=== PATIENT | male | born 1965 | race Caucasian/White ===

== ENCOUNTER 2019-09-27 00:08 | Day surgery (SDC) | payer BC, OTHER, SELFPAY ==
[2019-09-19 14:04] VITALS: BMI 33.6
[2019-09-27 07:00] VITALS: BP 141/89; PULSE 86; RESP 20; TEMP 36.1; O2SAT 99
--- NOTE | 2019-09-27 07:15 | P.PNAN_ITS ---
Anes - Initial Pre Proc Eval Procedure: Operation Date: 09/27/19 08:00 Proposed Procedures p Screening Colonoscopy - Nikunj Chance MD Date/Time: 09/27/19 07:15 Surgeon: Nikunj Chance MD Pre Op Diagnosis: Neoplasm Screening Patient Data Age: 53 Gender: M Height: 6 ft 2 in Weight: 144.7 kg Last Vital Signs Temp 96.9 F L 09/27/19 07:00 Pulse 86 09/27/19 07:00 Resp 20 09/27/19 07:00 BP 141/89 H 09/27/19 07:00 Pulse Ox 99 09/27/19 07:00 Allergies Allergy/AdvReac Type Severity Reaction Status Date / Time No Known Allergies Allergy Verified 09/27/19 06:57 Home Medications Medication Instructions Recorded Confirmed Type famotidine 40 mg PO DAILY 09/19/19 09/27/19 History levothyroxine [Synthroid] 88 mcg PO DAILY 09/19/19 09/27/19 History Patient hx anesthesia problems: none Family hx anesthesia problems: none [facility] Past Medical History Medical History (Updated 09/27/19 @ 07:16 by Maverick Mcdonald MD) Hypothyroid Morbid obesity Anes - Eval Final PreProcedure Day of Procedure 09/27/19 07:15 Patient weight: morbidly obese Heart: regular rate and rhythm Lungs: clear to auscultation Airway: Mallampati scale class III Neurological: alert and oriented Last oral intake: >/= 8 hours ASA classification: III Emergent: no Anesthetic plan: proceed Anesthesia type and monitoring: general GIVS and standard monitoring Informed Consent: The patient's anesthetic plan and its attendant risks and benefits were discussed with the patient/family/POA. Questions were solicited and answers provided to the satisfaction of the patient/family/POA.
[2019-09-27] MEDS: LACTATED RINGERS 1,000 ML 150 ML IV CONT (07:20)
--- NOTE | 2019-09-27 07:27 | P.HP_ITS ---
History of Present Illness History of Present Illness Consent: Risks, benefits, and alternatives have been discussed and questions answered. Patient agrees to proceed with procedure. Chief complaint: Neoplasm Screening Narrative: Louis Hernandez is a 53 year old male with family history of colon cancer [facility] Past Medical History Medical History Hypothyroid Morbid obesity Meds Home Medications and Allergies Home Medications Medication Instructions Recorded Confirmed Type famotidine 40 mg PO DAILY 09/19/19 09/27/19 History levothyroxine [Synthroid] 88 mcg PO DAILY 09/19/19 09/27/19 History Allergies Allergy/AdvReac Type Severity Reaction Status Date / Time No Known Allergies Allergy Verified 09/27/19 06:57 Vital Signs Vital Signs - 24 hr 09/27/19 07:00 Temperature 36.1 C L Pulse Rate 86 Respiratory Rate 20 Blood Pressure 141/89 H Pulse Oximetry 99 Exam Resp: Auscultation: clear to auscultation bilaterally Cardio: Rate: regular rate Rhythm: regular rhythm GI: GI Palp: Yes Soft to palpation and No Tenderness to palpation present (GI) Assessment and Plan Assessment and plan (1) Colon cancer screening: Code(s): Z12.11 - Encounter for screening for malignant neoplasm of colon Status: Acute Assessment and Plan: Colonoscopy with possible biopsy or polypectomy or cautery or injection of substances. (2) Family history of colon cancer: Code(s): Z80.0 - Family history of malignant neoplasm of digestive organs Status: Acute
[2019-09-27 08:15] VITALS: BP 103/52; PULSE 77; RESP 17; O2SAT 97
[2019-09-27 08:25] VITALS: BP 121/77; PULSE 78; RESP 21; O2SAT 98
[2019-09-27 08:35] VITALS: BP 131/65; PULSE 76; RESP 18; O2SAT 98
== END 2019-09-27 08:38 | disposition home or self-care (01) ==
PROVIDERS: Visit Provider Internal Medicine Gastroenterology
PROC: 0DJD8ZZ Inspection of Lower Intestinal Tract, Via Natural or Artificial Opening Endoscopic (ICD-10-PCS; CPT 45378; principal; 2019-09-27 08:00)
DX: Z12.11 Encounter for screening for malignant neoplasm of colon (principal); K64.8 Other hemorrhoids; E03.9 Hypothyroidism, unspecified; E66.01 Morbid (severe) obesity due to excess calories; Z68.41 Body mass index [BMI] 40.0-44.9, adult; Z80.0 Family history of malignant neoplasm of digestive organs
CPT/HCPCS: 45378; J2704; J7120

== ENCOUNTER → 2021-03-26 00:36 | Outpatient (CLI) | payer BC, OTHER, SELFPAY ==
[2021-03-26 23:33] LABS: SARS-CoV-2 RNA PCR Negative
== END ==
PROVIDERS: PCP Nurse Practitioner Family; Visit Provider Otolaryngology
DX: Z01.812 Encounter for preprocedural laboratory examination (principal); Z20.822 Contact with and (suspected) exposure to COVID-19
CPT/HCPCS: C9803; U0003; U0005

== ENCOUNTER 2021-03-29 00:45 | Day surgery (SDC) | payer BC, OTHER, SELFPAY ==
[2021-03-22 15:29] VITALS: BMI 39.1
--- NOTE | 2021-03-26 16:24 | P.PNAN_ITS ---
Anes - Eval Pre Procedure Procedure: Operation Date: 03/29/21 07:45 Proposed Procedures p Septoplasty - Kranthi Aponte MD s Bilateral Turbinate Reduction - Kranthi Aponte MD Date/Time: 03/26/21 16:24 Pre Op Diagnosis: deviated septum, turbinate hypertrophy Patient Data Age: 55 Gender: M Height: 1.88 m Weight: 138.35 kg Allergies Allergy/AdvReac Type Severity Reaction Status Date / Time No Known Allergies Allergy Verified 10/28/20 17:37 Home Medications Medication Instructions Recorded Confirmed Type levothyroxine [Synthroid] 60 mcg PO DAILY 03/22/21 03/22/21 History Patient hx anesthesia problems: none Family hx anesthesia problems: none [facility] Past Medical History Medical History Hypothyroid Morbid obesity Social History Social History Smoking status: Never smoker Alcohol use details: socially Substance use: never Spiritual care concerns: No Exam Day of Procedure 03/26/21 16:24 Patient weight: morbidly obese Heart: regular rate and rhythm Lungs: clear to auscultation Airway: Mallampati scale Neurological: alert and oriented
--- NOTE | 2021-03-26 19:23 | WPDANESEPP ---
Anes - Eval Pre Procedure Procedure: Operation Date: 03/29/21 07:45 Proposed Procedures p Septoplasty - Kranthi Aponte MD s Bilateral Turbinate Reduction - Kranthi Aponte MD Date/Time: 03/26/21 19:23 Pre Op Diagnosis: deviated septum, turbinate hypertrophy Patient Data Age: 55 Gender: M Height: 1.88 m Weight: 138.35 kg Allergies Allergy/AdvReac Type Severity Reaction Status Date / Time No Known Allergies Allergy Verified 10/28/20 17:37 Home Medications Medication Instructions Recorded Confirmed Type levothyroxine [Synthroid] 60 mcg PO DAILY 03/22/21 03/22/21 History Patient hx anesthesia problems: none Family hx anesthesia problems: none [facility] Past Medical History Medical History Hypothyroid Morbid obesity Surgical History Surgical History (Updated 03/26/21 @ 19:24 by Tico Mazariegos DO) History of repair of left rotator cuff History of tonsillectomy Social History Social History Smoking status: Never smoker Alcohol use details: socially Substance use: never Spiritual care concerns: No Exam Day of Procedure 03/26/21 19:23
[2021-03-29] VITALS (9 sets, daily range): BP systolic 90–150; BP diastolic 59–95; PULSE 66–88; RESP 10–18; TEMP 36.1–36.5; O2SAT 92–100
[2021-03-29] MEDS: LACTATED RINGERS 1,000 ML 30 ML IV CONT (06:30)
[2021-03-29] MEDS: ACETAMINOPHEN 500 MG TABLET 1000 MG PO (07:00)
[2021-03-29] MEDS: OXYMETAZOLINE HCL 0.05% NAS 15 ML BTL (*BKC) 1 SPRAY NASAL (07:00)
--- NOTE | 2021-03-29 07:01 | WPDANESEFPP ---
Anes - Eval Final PreProcedure Day of Procedure 03/29/21 07:01 Patient weight: morbidly obese Heart: regular rate and rhythm Lungs: clear to auscultation Airway: Mallampati scale class III and other (big muñiz) Neurological: alert and oriented Last oral intake: >/= 8 hours ASA classification: III Emergent: no Anesthetic plan: proceed Anesthesia type and monitoring: general ETT and standard monitoring Informed Consent: The patient's anesthetic plan and its attendant risks and benefits were discussed with the patient/family/POA. Questions were solicited and answers provided to the satisfaction of the patient/family/POA.
--- NOTE | 2021-03-29 07:23 | P.HP_ITS ---
H&P: HPI History of Present Illness Date/Time: 03/29/21 07:23 Chief Complaint: nasal dyspnea Narrative: deviated septum Review of Systems Review of Systems: All systems reviewed & are unremarkable except as noted in HPI and below [facility] Past Medical History Medical History Hypothyroid Morbid obesity Surgical History Surgical History History of repair of left rotator cuff History of tonsillectomy Social History Social History Smoking status: Never smoker Alcohol use details: socially Substance use: never Living arrangements: with family Spiritual care concerns: No Meds Home Medications and Allergies Home Medications Medication Instructions Recorded Confirmed Type levothyroxine [Synthroid] 60 mcg PO DAILY 03/22/21 03/22/21 History Allergies Allergy/AdvReac Type Severity Reaction Status Date / Time No Known Allergies Allergy Verified 10/28/20 17:37 Exam Narrative: deviated septum. rest of exam wnl Assessment and Plan Assessment and plan (1) Deviated nasal septum: Code(s): J34.2 - Deviated nasal septum Status: Acute Assessment and Plan: Deviatd septum and turbinate hypertrophy, here for septoplasty and turbinoplasty. refer to outpt for full details. r/b/a reviewed.
--- NOTE | 2021-03-29 07:25 | WPDHPUPDATE1 ---
History and Physical Update Update Date/Time: 03/29/21 07:25 History and Physical has been reviewed, including an updated exam of the patient. There are NO changes in the patient's condition. Risks, benefits, and alternatives have been discussed and questions answered. Patient agrees to proceed with procedure.
[2021-03-29] MEDS: ceFAZolin 3 GM/D5W 100 ML 100 ML IVPB (07:54)
[2021-03-29] MEDS: MUPIROCIN 2% OINT 22 GM TUBE 1 APPLIC TOPICAL (08:41)
[2021-03-29] MEDS: LIDO 1%/EPINEPHRINE 1:100,000 20 ML VIAL 4 ML INFILTRATE (08:46)
--- NOTE | 2021-03-29 08:47 | P.OP_ITS ---
Procedure Note - Detailed Date of Procedure 03/29/21 Pre-op Diagnosis deviated septum, turbinate hypertrophy Post-op Diagnosis same Procedure Performed Septoplasty and bilateral inferior turbinoplasty Surgeon Kranthi Aponte MD Anesthesia general Indications nasal dyspnea Findings Right septal deviation, turbinate hypertrophy bilateral Description of Procedure After obtaining informed consent and proper site verification the patient was brought to the operating room and placed on the operating table in the supine position. They were placed under general endotracheal anesthesia by the anesthesia provider. The patient was then draped in standard fashion for septoplasty and turbinoplasty. A timeout was performed and the correct patient and procedure were verified. The nasal cavity was injected with 1% lidocaine with 1-100,000 epinephrine and packed with afrin-soaked cottonoid pledgets. ? Attention was then directed to the nasal septum. A hemitransfixion incision was made in the left caudal septum and a mucoperichondrial flap was elevated in the usual fashion. The flap was elevated under endoscopic visualization and the remainder of the case was performed with endoscopic assistance. Using a D-k nife, an incision was made through the cartilaginous septum with care to preserve the appropriate caudal and dorsal ?L-strut? of cartilage. The cartilage was then disarticulated from the bony-cartilaginous junction and the deviated cartilage was removed. Further deviated bone and cartilage was removed from the maxillary crest and posterior bony septum with care to avoid injury to the mucoperichondrial flap using a combination of dissection and Rodrigo- Farhat forceps. Once this was completed, the hemitransfixion incision was closed using simple interrupted 4-0 chromic suture. A quilting stitch to reapproximate the mucoperichondrial flaps was then placed using 4-0 plain gut suture on a Angel needle. ? Next attention was directed to the turbinates. Using a 0? telescope and 2mm turbinate blade microdebrider, a stab incision was made in the anterior face of the turbinate and dissection was carried posterior to perform submucosal resection. Next the turbinate was outfractured using a blunt instrument. A similar procedure was then performed on the right-hand side without difficulty. Lehman splints covered in mupirocin ointment were placed in the nasal cavity and secured to the membranous septum using a 3-0 Prolene suture. ?The patient was awakened from general anesthesia extubated in the operating room, and transported to the recovery room in stable condition without complication. Estimated Blood Loss 50 Drains No Packing Yes (lehman splints) Pathology none sent Complications No immediate complications Condition stable Disposition PACU
[2021-03-29] MEDS: fentaNYL CITRATE INJ (*CRX) 100 MCG/2 ML VIAL 25 MCG IV PUSH ×6 (09:06→10:22)
[2021-03-29] MEDS: oxyCODONE HCL (*CRX) 5 MG TAB IR PO (10:17)
--- NOTE | 2021-03-29 10:30 | SUR.PHASEII ---
PT STATES PAIN NOW 02/27. STATES PT SLEEPING IN INTERVALS. SM AMT BLEEDING TO NASAL DRIP PAD. PAIN MEDS GIVEN PRN. RESP EVEN UNLABORED. EATING POPSICLE.
--- NOTE | 2021-03-29 10:52 | SUR.PHASEII ---
PT RELAXED. RESTING QUIETLY. STATES HE IS READY TO GO HOME. MEETS DISCHARGE CRITERIA
== END 2021-03-29 11:02 | disposition home or self-care (01) ==
PROVIDERS: PCP Nurse Practitioner Family; Visit Provider Otolaryngology
PROC: (CPT 30520; principal; 2021-03-29 07:45)
PROC: (CPT 30520; 2021-03-29 07:45)
DX: J34.2 Deviated nasal septum (principal); J34.3 Hypertrophy of nasal turbinates; R06.09 Other forms of dyspnea; E03.9 Hypothyroidism, unspecified; E66.01 Morbid (severe) obesity due to excess calories; Z68.41 Body mass index [BMI] 40.0-44.9, adult
CPT/HCPCS: 30520; 30140; A9270; J0330; J0690; J2250; J2270; J2405; J2704; J3010; J7120

== ENCOUNTER → 2021-04-09 01:29 | Outpatient (CLI) | payer BC, OTHER, SELFPAY ==
[2021-04-09 20:12] LABS: SARS-CoV-2 RNA PCR Negative
== END ==
PROVIDERS: PCP Nurse Practitioner Family; Visit Provider Internal Medicine Gastroenterology
DX: Z01.812 Encounter for preprocedural laboratory examination (principal); Z20.822 Contact with and (suspected) exposure to COVID-19
CPT/HCPCS: C9803; U0003; U0005

== ENCOUNTER 2021-04-12 02:28 | Day surgery (SDC) | payer BC, OTHER, SELFPAY ==
[2021-04-01 13:39] VITALS: BMI 39.2
--- NOTE | 2021-04-12 07:51 | PM.HPGS ---
History of Present Illness History of Present Illness Consent: Risks, benefits, and alternatives have been discussed and questions answered. Patient agrees to proceed with procedure. Chief complaint: family hx of colon ca Narrative: Louis Hernandez is a 55 year old male here for colon cancer screening. He has a family history of colon cancer. His prep was inadequate last year Review of Systems Review of Systems: All systems reviewed & are unremarkable except as noted in HPI and below PMFSH Past Medical History Medical History Hypothyroid Morbid obesity Surgical History Surgical History History of repair of left rotator cuff History of tonsillectomy Social History Social History Smoking status: Never smoker Alcohol intake: current Alcohol use details: 3 PER MONTH Substance use: never Substance use type: does not use Living arrangements: with family Spiritual care concerns: No Meds Home Medications and Allergies Home Medications Medication Instructions Recorded Confirmed Type levothyroxine [Synthroid] 60 mcg PO DAILY 03/22/21 04/01/21 History hydrocodone-acetaminophen 1 tablet PO Q4H PRN #20 tablet 03/29/21 04/01/21 Rx Allergies Allergy/AdvReac Type Severity Reaction Status Date / Time No Known Allergies Allergy Verified 04/12/21 09:41 Exam Resp: Auscultation: clear to auscultation bilaterally Cardio: Rate: regular rate Rhythm: regular rhythm GI: GI Palp: Yes Soft to palpation and No Tenderness to palpation present (GI) Assessment and Plan Assessment and plan (1) Colon cancer screening: Code(s): Z12.11 - Encounter for screening for malignant neoplasm of colon Status: Acute Assessment and Plan: Colonoscopy with possible biopsy or polypectomy or cautery or injection of substances.
--- NOTE | 2021-04-12 09:24 | WPDANESEPPF ---
Anes - Initial Pre Proc Eval Procedure: Operation Date: 04/12/21 10:30 Proposed Procedures p Screening Colonoscopy - Nikunj Chance MD Date/Time: 04/12/21 09:24 Surgeon: Nikunj Chance MD Pre Op Diagnosis: family hx of colon ca Patient Data Age: 55 Gender: M Height: 1.88 m Weight: 138.5 kg Allergies Allergy/AdvReac Type Severity Reaction Status Date / Time No Known Allergies Allergy Verified 04/12/21 09:41 Home Medications Medication Instructions Recorded Confirmed Type levothyroxine [Synthroid] 60 mcg PO DAILY 03/22/21 04/01/21 History hydrocodone-acetaminophen 1 tablet PO Q4H PRN #20 tablet 03/29/21 04/01/21 Rx Patient hx anesthesia problems: none Family hx anesthesia problems: none PMFSH Past Medical History Medical History Hypothyroid Morbid obesity Surgical History Surgical History History of repair of left rotator cuff History of tonsillectomy Social History Social History Smoking status: Never smoker Alcohol intake: current Alcohol use details: 3 PER MONTH Substance use: never Substance use type: does not use Living arrangements: with family Spiritual care concerns: No Anes - Eval Final PreProcedure Day of Procedure 04/12/21 09:24 Patient weight: morbidly obese Heart: regular rate and rhythm Lungs: clear to auscultation and normal air movement Airway: Mallampati scale class II Neurological: alert and oriented Last oral intake: >/= 8 hours ASA classification: III Emergent: no Anesthetic plan: proceed Anesthesia type and monitoring: general GIVS Informed Consent: The patient's anesthetic plan and its attendant risks and benefits were discussed with the patient/family/POA. Questions were solicited and answers provided to the satisfaction of the patient/family/POA.
[2021-04-12 09:42] VITALS: BP 115/72; PULSE 93; RESP 20; TEMP 36.3; O2SAT 95
[2021-04-12] MEDS: LACTATED RINGERS 1,000 ML 150 ML IV CONT (10:00)
[2021-04-12 10:33] VITALS: BP 139/79; PULSE 91; RESP 22; O2SAT 96
[2021-04-12 10:43] VITALS: BP 144/96; PULSE 96; RESP 16; O2SAT 97
[2021-04-12 10:53] VITALS: BP 125/85; PULSE 93; RESP 24; O2SAT 98
== END 2021-04-12 11:12 | disposition home or self-care (01) ==
PROVIDERS: PCP Nurse Practitioner Family; Visit Provider Internal Medicine Gastroenterology
PROC: 0DJD8ZZ Inspection of Lower Intestinal Tract, Via Natural or Artificial Opening Endoscopic (ICD-10-PCS; CPT 45378; principal; 2021-04-12 10:30)
DX: Z12.11 Encounter for screening for malignant neoplasm of colon (principal); Z80.0 Family history of malignant neoplasm of digestive organs; E03.9 Hypothyroidism, unspecified; E66.9 Obesity, unspecified; Z68.39 Body mass index [BMI] 39.0-39.9, adult; K63.5 Polyp of colon
CPT/HCPCS: 45380; 88305; J2704; J7120

== ENCOUNTER → 2021-09-06 00:35 | Outpatient (CLI) | payer BC, OTHER, SELFPAY ==
[2021-09-07 10:57] LABS: SARS-CoV-2 RNA PCR Positive
== END ==
PROVIDERS: PCP Nurse Practitioner Family; Visit Provider Orthopaedic Surgery
DX: U07.1 COVID-19 (principal); Z01.812 Encounter for preprocedural laboratory examination
CPT/HCPCS: C9803; U0003; U0005

== ENCOUNTER 2021-10-14 00:13 | Day surgery (SDC) | payer BC, OTHER, SELFPAY ==
[2021-09-03 12:57] VITALS: BMI 38.5
--- NOTE | 2021-09-03 13:04 | PC.NURSE ---
Addendum entered by Denisse Driscoll RN 10/06/21 12:53: PT TO ARRIVE AT 0900 ON 10/14/21 FOR SURGERY AT 1100. ONE VISITOR MAY ACCOMPANY PT INTO PRE-OP. NO REPEAT COVID TEST NEEDED. PT TO TAKE THYROID AND GABAPENTIN WITH SMALL SIP OF WATER MORNING OF PROCEDURE. Addendum entered by Denisse Driscoll RN 09/16/21 08:36: PT INSTRUCTED TO ARRIVE AT 0700 ON 09/23/21 FOR SURGERY AT 0900. Original Note: Report to the Outpatient Waiting Room, entrance under the green pavilion located off [facility], at time 0600 on date 09/09/21. OR Time: 0730. - You will be asked a series of questions to screen for COVID 19 for your protection. - A mask is required within the hospital. - No visitors are allowed at this time. Preoperative COVID Testing Requirements: COVID TEST 09/06 AT 0930 No COVID Test needed if: (proof is required; if not received patient will have Rapid Test prior to entry) - Patient has received COVID Vaccine at least 14 days prior to procedure date or - Patient has positive COVID test result within last 90 days of surgery date. COVID Test needed if above criteria is not met If not COVID vaccinated a COVID test must be conducted within 72 hours of surgery and patient is asked to isolate self from time of testing until procedure. You will go to the [facility] [facility] for your COVID testing. The [employer] [facility] Testing site is located at the corner of [address] [facility]. You will only be called if COVID results are positive and your surgeon may reschedule your elective surgery date. Patients may have clear liquids (water, carbonated beverages, clear teas, apple juice) until 3 hours prior to surgery with a maximum of 20 ounces. - No food from midnight until time of surgery Take the following medications with a SIP of water the morning of surgery: LEVOTHYROXINE Medications to discontinue per physician: N/A Date to take last dose: N/A Please no make-up, nail mosotho, hairspray, perfume, deodorant, or body powder the day of surgery. No jewelry (including any body piercings) or valuables the day of surgery, leave them at home. Please take a shower or bath the night before, or the morning of, surgery with an antibacterial soap. Wear comfortable, loose fitting clothing. - Jewelry must be removed prior to entering the operating room. Rings and piercings that are not removed may be cut off. - The hospital will not accept responsibility for valuables. - Please leave all valuables, including medications, at home the day of surgery. If you are going home after surgery, a licensed pedicab driver must drive you home. - NO public transportation without another adult. - We recommend that an adult stay with you for 24 hours following discharge. - We also recommend that you do not drive, make important decision, drink alcoholic beverages, or take any drugs that were not prescribed by your health care provider for at least 24 hours after your discharge time. Follow any additional instructions given to you from your surgeon. Telephone instructions given to CYNTHIA REED and asked if any additional questions and then verbalized understanding. Patient advised to call surgeon office or pre surgery nurse liaison [phone] if any additional questions.
--- NOTE | 2021-09-16 08:36 | PC.NURSE ---
Pt states no changes in medications since initial interview. Health history updated. New instructions reviewed with pt. Pt denies further questions at this time.
--- NOTE | 2021-10-06 12:52 | PC.NURSE ---
Pt medications updates. Pt states no changes in health history since previous interview. New instructions reviewed with pt. Pt denies further questions at this time.
--- NOTE | 2021-10-13 16:32 | PM.IMHP ---
H&P: HPI History of Present Illness Date/Time: 10/13/21 16:32 Chief Complaint: Left foot pain, numbness and tingling Narrative: 56-year-old gentleman with left foot pain, numbness and tingling for the past several years. Noted to have tarsal tunnel on nerve studies. Underwent previous right tarsal tunnel with good relief. Numbness and tingling daily basis left foot worse with certain activity and shoe wear. Desires similar surgical treatment for nerve compression. In addition has plantar lateral callus at the 5th metatarsal head. Difficulty with pain due to the callus and shoe wear. Desires removal. Review of Systems Constitutional: Constitutional: Denies fever(s) Eyes: Eyes: Denies blurry vision ENT: Reports Normal hearing present Cardiovascular: Cardiovascular: Denies chest pain and Denies dyspnea Respiratory: Respiratory: Denies dyspnea and Denies wheezing Gastrointestinal: Gastrointestinal: Denies abdominal pain Genitourinary: Genitourinary: Denies urinary urgency Musculoskeletal: Musculoskeletal: Reports as per HPI and Denies numbness Integumentary/Breasts: Skin/Breast: Denies changing lesions and Denies sores Neurologic: Reports Normal hearing present, Denies behavioral changes, Denies confusion, Denies numbness and Denies convulsions Psychiatric: Psychiatric: Denies behavioral changes, Denies confusion and Denies hallucinations Endocrine: Endocrine: Denies heat intolerance Hematologic/Lymphatic: Hematologic/Lymphatic: Denies easy bleeding Allergic/Immunologic: Allergic/Immunologic: Denies wheezing PMFSH Past Medical History Medical History Bunionette of left foot Bunionette of right foot Callus of foot Hypothyroid Hypothyroidism Morbid obesity Tarsal tunnel syndrome, left lower limb Surgical History Surgical History History of repair of left rotator cuff History of tonsillectomy Social History Social History Smoking status: Never smoker Alcohol intake: current Alcohol use details: 2/MONTH Substance use: never Substance use type: does not use Spiritual care concerns: No Meds Home Medications and Allergies Home Medications Medication Instructions Recorded Confirmed Type esomeprazole magnesium 40 mg 40 mg PO BID cap 06/09/21 10/06/21 History capsule,delayed release gabapentin 600 mg PO TID 10/06/21 10/06/21 History thyroid (pork) [Buchanan Thyroid] 90 mg PO DAILY 10/06/21 10/06/21 History Allergies Allergy/AdvReac Type Severity Reaction Status Date / Time No Known Allergies Allergy Verified 09/16/21 08:38 Exam Const: General: healthy appearing; No in distress or confusion Orientation/consciousness: oriented to person, oriented to place, oriented to time and No confusion HENMT: Head: normal to inspection, normocephalic and atraumatic Eyes: Conjunctivae: conjunctivae normal Sclera: sclerae normal Neck: Neck: supple and nontender Resp: Effort & Inspection: normal respiratory effort and no audible wheezes Cardio: Rate: regular rate Rhythm: regular rhythm Skin: General skin exam: no rashes or lesions noted Neuro: General: oriented to person, oriented to place, oriented to time and No confusion Extrem: Right upper extremity: normal to inspection Left upper extremity: normal to inspection Right lower extremity: normal to inspection, normal capillary refill, ankle Details: normal to inspection and abnormal ROM Details: pain with active ROM, pain with passive ROM and with range as follows (dorsiflexion -10, planter flexion 40, inversion 15, eversion 5); no tenderness and no swelling and foot Details: tenderness (plantar heel ), vascular exam (2+ dorsalis pedis pulse ) Details: dorsalis pedis pulse present, posterior tibial pulse present and normal capillary refill, tendon exam, motor-senso
[2021-10-14] VITALS (9 sets, daily range): BP systolic 128–154; BP diastolic 78–96; PULSE 76–88; RESP 10–21; TEMP 36.3–36.6; O2SAT 96–100
--- NOTE | ~2021-10-14 | XR_ITS ---
EXAMINATION: XR surgery orthopedic DATE: 10/14/2021 12:34 INDICATION: Surgery to the left fifth metatarsal. TECHNIQUE: 3 fluoroscopic images of the left forefoot were obtained during procedure performed by Dr. Reeves. Radiologist was not present for the imaging or procedure. The amount of fluoroscopy time us ed during this procedure was 0.1 minutes. COMPARISON: Left foot radiographs dated 06/09/2021 FINDINGS: Likely realignment osteotomy at the neck of the fifth metatarsal with slight medial angulation of the head of the metatarsal. There is also been an osteotomy along the lateral head of the fifth metatars al. No fracture. Soft tissue swelling and expected postoperative gas lateral to the head of the fifth metatarsal. Mild osteoarthritis with mild nonuniform joint space narrowing and tiny marginal osteoph ytes at the lateral side of the first metatarsophalangeal joint. Remaining visualized joint spaces ap pear relatively preserved. IMPRESSION: 1. Expected appearance post osteotomies at the head and neck of the fifth metatarsal. See procedure n ote for further detail. Reviewed, dictated and finalized at location A. GRATED MARKETING MANAGER IMPRESSION: 1. Expected appearance post osteotomies at the head and neck of the fifth metat arsal. See procedure note for further detail.
--- NOTE | 2021-10-14 08:10 | WPDHPUPDATE1 ---
History and Physical Update Update Date/Time: 10/14/21 08:10 History and Physical has been reviewed, including an updated exam of the patient. There are NO changes in the patient's condition. Risks, benefits, and alternatives have been discussed and questions answered. Patient agrees to proceed with procedure.
[2021-10-14] MEDS: LACTATED RINGERS 1,000 ML 30 ML IV CONT (08:56)
[2021-10-14] MEDS: ACETAMINOPHEN 500 MG TABLET 1000 MG PO (08:57)
[2021-10-14] MEDS: KETOROLAC 15 MG/ML VIAL (*BKC) IV PUSH (08:58)
--- NOTE | 2021-10-14 09:21 | P.PNAN_ITS ---
Anes - Initial Pre Proc Eval Procedure: Operation Date: 10/14/21 11:00 Proposed Procedures p Left Tarsal Tunnel Release, - Philip Reeves MD s Fifth Metatarsal Osteotomy, Excision Calcaneal Spur - Philip Reeves MD Date/Time: 10/14/21 09:21 Surgeon: Philip Reeves MD Pre Op Diagnosis: left tarsal tunnel syndrome, bunionette Patient Data Age: 56 Gender: M Height: 1.88 m Weight: 152.4 kg Last Vital Signs Temp 97.9 F 10/14/21 09:00 Pulse 86 10/14/21 09:00 Resp 16 10/14/21 09:00 BP 128/78 10/14/21 09:00 Pulse Ox 97 10/14/21 09:00 Allergies Allergy/AdvReac Type Severity Reaction Status Date / Time No Known Allergies Allergy Verified 10/14/21 08:32 Home Medications Medication Instructions Recorded Confirmed Type esomeprazole magnesium 40 mg 40 mg PO BID cap 06/09/21 10/14/21 History capsule,delayed release gabapentin 600 mg PO TID 10/06/21 10/14/21 History thyroid (pork) [[place] Thyroid] 90 mg PO DAILY 10/06/21 10/14/21 History Patient hx anesthesia problems: none Family hx anesthesia problems: none Results Review: All pre-operative results and documents have been reviewed as part of the pre-operative evaluation. [facility] Past Medical History Medical History Bunionette of left foot Bunionette of right foot Callus of foot Hypothyroid Hypothyroidism Morbid obesity Tarsal tunnel syndrome, left lower limb Surgical History Surgical History History of repair of left rotator cuff History of tonsillectomy Social History Social History Smoking status: Never smoker Alcohol intake: current Alcohol use details: 2/MONTH Substance use: never Substance use type: does not use Living arrangements: with family Spiritual care concerns: No Anes - Eval Final PreProcedure Day of Procedure 10/14/21 09:21 Patient weight: morbidly obese Heart: regular rate and rhythm Lungs: clear to auscultation Airway: Mallampati scale class III Neurological: alert and oriented Last oral intake: >/= 8 hours ASA classification: III Emergent: no Anesthetic plan: proceed Anesthesia type and monitoring: general LMA and standard monitoring Results Review: All pre-operative results and documents have been reviewed as part of the pre-operative evaluation. Informed Consent: The patient's anesthetic plan and its attendant risks and benefits were discussed with the patient/family/POA. Questions were solicited and answers provided to the satisfaction of the patient/family/POA.
[2021-10-14] MEDS: ceFAZolin 3 GM/D5W 100 ML 100 ML IVPB (10:53)
[2021-10-14] MEDS: BUPIVACAINE/EPINEPHRINE 0.25% 50 ML VIAL 20 ML INFILTRATE (11:20)
--- NOTE | 2021-10-14 13:05 | P.OP_ITS ---
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 Presents for operative release of the nerve and correction of bunionette. Description of Procedure Informed consent given by the patient and operative extremity marked in preoperative holding area. Patient received intravenous antibiotics. Taken to the operating room and underwent general anesthesia by anesthesia team. Positioned supine on operating room table. Time-out performed confirming patient, site of surgery, plan. Right lower extremity prepped and draped in usual sterile surgical fashion using ChloraPrep skin solution. No tourniquet utilized. Local anesthetic with 0.25% Marcaine and epinephrine at the incision site. Fifteen blade knife used to make oblique incision over the tarsal tunnel of the medial aspect right ankle. Hemostasis controlled with electrocautery and bipolar cautery. Dissection carried down to the fascia which was incised in line with skin incision and retractors placed. Careful technique utilized with [employer] elevator deep to the transverse tarsal ligament and ligament divided in line with skin incision. Dissection from proximal to distal with protection of the neurovascular bundle. Tightness of the retinaculum noted. Medial branch plantar nerve identified and released under direct visualization into the tarsal canal. Lateral branch identified and released under the abductor musculature. No other areas of compression identified. Retractors placed deep to the abductors musculature and plantar fascia observed. Medial 1/3 of plantar fascia excised with 3 millimeter width to prevent further recurrence. Bleeding points controlled with bipolar cautery. Wound thoroughly irrigated with antibiotic solution. Subcutaneous tissue repaired with 2 0 Vicryl and 3 0 Monocryl interrupted suture. Skin repaired with 4 0 nylon running suture. Bunionette deformity then addressed. Foot ankle were exsanguinated and thigh tourniquet inflated to 250 mmHg. Longitudinal incision made over the lateral eminence of the 5th metatarsal. Incision was done with a 15 blade knife. Hemostasis controlled electrocautery. Lateral capsule exposed in a longitudinal capsulotomy performed. Lateral eminence was resected with a sagittal saw. Osteotomy then performed of the distal 5th metatarsal from lateral to medial. Capital fragment was then translated medially impacted onto the shaft. Fixation achieved with a 1.5 mm trim it pin. Remaining lateral bone resected with sagittal saw and rongeur. Image intensification used to confirm the alignment. Wound thoroughly irrigated the capsule repaired with 2-0 Vicryl interrupted suture. Subcutaneous tissue repaired with 3-0 Monocryl interrupted suture and skin repaired with 4-0 nylon running suture. Bulky dressing and splint applied. Patient awoken from anesthesia, extubated, taken to recovery in stable condition. All sponge, needle, instrument counts correct at end of case. Implants Arthrex 1.5 mm trim it pin. Estimated Blood Loss 10 Tourniquet Time 48 Drains No Packing No Pathology none sent Complications None Condition stable Disposition PACU
[2021-10-14] MEDS: oxyCODONE HCL (*CRX) 5 MG TAB IR PO (14:22)
[2021-10-14] MEDS: ONDANSETRON INJ 4 MG/2 ML VIAL IV PUSH (14:25)
== END 2021-10-14 15:00 | disposition home or self-care (01) ==
PROVIDERS: PCP Nurse Practitioner Family; Visit Provider Orthopaedic Surgery
PROC: (CPT 28035; principal; 2021-10-14 11:00)
PROC: (CPT 28750; 2021-10-14 11:00)
DX: G57.52 Tarsal tunnel syndrome, left lower limb (principal); M72.2 Plantar fascial fibromatosis; M21.622 Bunionette of left foot; L84 Corns and callosities; E03.9 Hypothyroidism, unspecified; E66.01 Morbid (severe) obesity due to excess calories; Z68.41 Body mass index [BMI] 40.0-44.9, adult; Z86.16 Personal history of COVID-19
CPT/HCPCS: 28035; 28308; A9270; C1713; J0690; J1100; J1885; J2250; J2405; J2704; J3010; J7120

== ENCOUNTER → 2022-01-21 06:57 | Outpatient (CLI) | payer BC, OTHER, SELFPAY ==
--- NOTE | ~2022-01-21 | MR_ITS ---
EXAMINATION: MR lumbar spine wo con DATE: 01/21/2022 07:24 INDICATION: Left-sided low back pain. Left leg pain. Sacrococcygeal disorders, not elsewhere classifi ed. TECHNIQUE: Magnetic resonance imaging (MRI) of the lumbar spine was performed without intravenous con trast. Sequences included sagittal T2-weighted FSE, sagittal T2-weighted FS FSE, sagittal T1-weighted FSE, and axial T2-weighted FSE. COMPARISON: None FINDINGS: There is 4 degrees levocurvature of lumbar spine. There is mild chronic anterior wedging of T11 and T12 vertebral bodies. There is mildly decreased disc height at T11-T12 and T12-L1. The dista l spinal cord signal intensity is normal. The conus medullaris is at T12-L1. The following disc level s are specifically discussed: L1-L2: The disc is mildly bulging. There is mild bilateral facet joint osteoarthritis. There is mild bilateral neural foraminal stenosis. There is mild central canal stenosis. L2-L3: The disc is mildly bulging. There is mild bilateral facet joint osteoarthritis. There is mild bilateral neural foraminal stenosis. There is no central canal stenosis. L3-L4: The disc is bulging. There is mild bilateral facet joint osteoarthritis. There is mild bilater al neural foraminal stenosis. There is mild central canal stenosis. L4-L5: The disc is mildly bulging. There is moderate bilateral facet joint osteoarthritis. There is m ild bilateral neural foraminal stenosis. There is no central canal stenosis. L5-S1: The disc does not extend beyond the endplate margin. There is no facet joint osteoarthritis. T here is no neural foraminal stenosis. There is no central canal stenosis. IMPRESSION: 1. Mild lumbar spondylosis. Reviewed, dictated and finalized at location A. IMPRESSION: 1. Mild lumbar spondylosis.
== END ==
PROVIDERS: PCP Nurse Practitioner Family; Visit Provider Orthopaedic Surgery
DX: M53.3 Sacrococcygeal disorders, not elsewhere classified (principal); M47.816 Spondylosis without myelopathy or radiculopathy, lumbar region
CPT/HCPCS: 72148

== ENCOUNTER → 2022-11-14 12:53 | Outpatient (CLI) | payer BC, OTHER, SELFPAY ==
--- NOTE | ~2022-11-14 | MR_ITS ---
MRI of the lumbar spine Clinical History: Back pain, sciatica Technique: Axial T2-weighted images, and sagittal T1-weighted, T2-weighted, and T2 fat-sat images wer e acquired. COMPARISON: 01/21/2022 Findings: There is no fracture or subluxation of the lumbar spine. Vertebral bodies maintain normal h eight and alignment. No suspicious bone marrow signal abnormality seen. At L1-L2, there is minimal facet joint arthropathy. No spinal canal stenosis or neural foraminal narr owing. At L2-L3, there is minimal disc bulge and mild facet arthropathy. No spinal canal stenosis or definit e neural foraminal narrowing. At L3-L4, there is mild disc bulge and facet arthropathy. No spinal canal stenosis. No definite neura l foraminal narrowing. At L4-L5, there is no disc bulge or herniation. There is moderate to advanced facet arthropathy. Ther e is mild left neural foraminal narrowing. Right neural foramen preserved. At L5-S1, there is no disc bulge or herniation. There is mild facet arthropathy. No spinal canal sten osis or neural foraminal narrowing. Paravertebral soft tissues are unremarkable. Impression: Minimal degenerative spondylitic changes, as above. Reviewed, dictated and finalized at location . Impression: Minimal degenerative spondylitic changes, as above.
== END ==
PROVIDERS: PCP Nurse Practitioner Family; Visit Provider Neurological Surgery
DX: M54.30 Sciatica, unspecified side (principal); M54.10 Radiculopathy, site unspecified
CPT/HCPCS: 72148

== ENCOUNTER 2022-12-19 08:11 | Outpatient (CLI) | payer BC, OTHER, SELFPAY ==
--- NOTE | 2022-12-19 11:00 | NEURO_ITS ---
Impression: # Complains of pain in lower extremity for more than 4 years. # Normal motor and sensory nerve conduction study. # Normal needle/EMG exam without any neurogenic changes or myotonia. # Clinical correlation recommended. Nerve Conduction Studies Anti Sensory Summary Table Stim Site NR Peak (ms) P-T Amp (?V) Site1 Site2 Delta-P (ms) Dist (cm) Mika (m/s) Left Sup Fibular Anti Sensory (Ant Lat Mall) 14 cm 3.5 13.2 14 cm Ant Lat Mall 3.5 16.0 46 Right Sup Fibular Anti Sensory (Ant Lat Mall) 14 cm 3.6 24.4 14 cm Ant Lat Mall 3.6 16.0 44 Left Sural Anti Sensory (Lat Mall) Calf 3.9 6.7 Calf Lat Mall 3.9 16.0 41 Right Sural Anti Sensory (Lat Mall) Calf 3.4 10.4 Calf Lat Mall 3.4 16.0 47 Motor Summary Table Stim Site NR Onset (ms) O-P Amp (mV) Site1 Site2 Delta-0 (ms) Dist (cm) Mika (m/s) Left Peroneal Motor (Vastus Med) Ankle 4.8 1.1 Popit Ankle 9.3 44.0 47 Popit 14.1 0.9 Right Peroneal Motor (Vastus Med) Ankle 4.3 2.7 Popit Ankle 9.1 42.0 46 Popit 13.4 2.1 Left Tibial Motor (Abd [place] Brev) Ankle 4.5 0.5 Knee Ankle 9.9 44.0 44 Knee 14.4 1.3 Right Tibial Motor (Abd [place] Brev) Ankle 4.6 1.5 Knee Ankle 10.5 45.0 43 Knee 15.1 1.9 F Wave Studies NR F-Lat (ms) L-R F-Lat (ms) Left Peroneal (Mrkrs) (EDB) 56.18 0.81 Right Peroneal (Mrkrs) (EDB) 56.99 0.81 Left Tibial (Mrkrs) (Abd Hallucis) 57.90 0.00 Right Tibial (Mrkrs) (Abd Hallucis) 57.90 0.00 EMG Side Muscle Nerve Root Ins Act Fibs Amp Dur Recrt Comment Right AntTibialis Dp Br Fibular L4-5 Nml Nml Nml Nml Nml Right Gastroc Tibial S1-2 Nml Nml Nml Nml Nml Right Fibularis Long Sup Br Fibular L5-S1 Nml Nml Nml Nml Nml Right Flex Dig Long Tibial L5-S2 Nml Nml Nml Nml Nml Right Ext Dig Brev Dp Br Fibular L5, S1 Nml Nml Nml Nml Nml Left AntTibialis Dp Br Fibular L4-5 Nml Nml Nml Nml Nml Left Gastroc Tibial S1-2 Nml Nml Nml Nml Nml Left Fibularis Long Sup Br Fibular L5-S1 Nml Nml Nml Nml Nml Left Flex Dig Long Tibial L5-S2 Nml Nml Nml Nml Nml Left Ext Dig Brev Dp Br Fibular L5, S1 Nml Nml Nml Nml Nml MTDD
== END 2022-12-19 08:12 | disposition home or self-care (01) ==
LOC: ANHNEURO 08:12
PROVIDERS: PCP Nurse Practitioner Family; Visit Provider Neurological Surgery
DX: M53.3 Sacrococcygeal disorders, not elsewhere classified (principal); M79.604 Pain in right leg; M79.605 Pain in left leg
CPT/HCPCS: 95886; 95910

== ENCOUNTER 2024-04-18 08:23 | Outpatient (CLI) | payer BC, OTHER, SELFPAY ==
--- NOTE | ~2024-04-18 | MR_ITS ---
MRI of the lumbar spine Clinical History: Spondylosis Technique: Axial T2-weighted images, and sagittal T1-weighted, T2-weighted, and and T2 fat-sat images were acquired. COMPARISON: 11/14/2022 Findings: There is no fracture or subluxation of lumbar spine. Vertebral bodies maintain normal heigh t and alignment. No suspicious bone marrow signal abnormality seen. At L1-L2, there is minimal disc bulge and mild facet arthropathy. No central canal stenosis or neural foraminal narrowing. At L2-L3, there is minimal disc bulge and mild to moderate facet arthropathy. No central canal stenos is. There is mild left neural foraminal narrowing. Right neural foramen preserved. At L3-L4, there is mild disc bulge and moderate facet arthropathy. No central canal stenosis. There i s mild bilateral neural foraminal narrowing. At L4-L5, there is minimal disc bulge with moderate facet arthropathy. No central canal stenosis. The re is moderate left neural foraminal narrowing. Right neural foramen preserved. At L5-S1, there is minimal disc bulge with moderate facet arthropathy. No central canal stenosis. No neural foraminal narrowing. Paravertebral soft tissues are unremarkable. Impression: Mild degenerative spondylosis overall, as detailed above. Reviewed, dictated and finalized at location . Impression: Mild degenerative spondylosis overall, as detailed above.
--- NOTE | ~2024-04-18 | MR_ITS ---
EXAMINATION: MR pelvis wo con DATE: 04/18/2024 09:46 INDICATION: Spondylosis of lumbar region without myelopathy. Low back pain radiating to the left hip. TECHNIQUE: Magnetic resonance imaging (MRI) of the pelvis was performed without intravenous contrast. COMPARISON: Pelvis and left hip radiographs 02/02/22 FINDINGS: Alignment is normal. No fracture. There is mild osteoarthritis of the hips. The iliopsoas tendons, de la torre mstring tendon origins, gluteus minimus tendons, and gluteus medius tendons are normal. The musculatu re is normal. There is mild bilateral trochanter bursitis. There is a left inguinal hernia containing fat. IMPRESSION: 1. Mild osteoarthritis of the hips. 2. Left inguinal hernia containing fat. Reviewed, dictated and finalized at location A.
== END 2024-04-18 08:24 ==
LOC: MICIMG 08:26
PROVIDERS: PCP Nurse Practitioner Family
DX: M47.896 Other spondylosis, lumbar region (principal); M47.897 Other spondylosis, lumbosacral region; M16.0 Bilateral primary osteoarthritis of hip; K40.90 Unilateral inguinal hernia, without obstruction or gangrene, not specified as recurrent; G89.29 Other chronic pain
CPT/HCPCS: 72148; 72195

== ENCOUNTER 2025-06-10 12:14 | Outpatient (CLI) | payer BC, OTHER, SELFPAY ==
--- NOTE | 2025-06-10 13:15 | NEURO_ITS ---
IMPRESSION: # Complains of numbness of left 4th and 5th fingers. Non-Diabetic. ? # Early left Carpal Tunnel Syndrome. ? # Left ulnar neuropathy across the elbow. ? # Normal needle/EMG exam. Nerve Conduction Studies ?Stim Site NR Peak (ms) P-T Amp (?V) Site1 Site2 Delta-P (ms) Dist (cm) Mika (m/s) Left Median Anti Sensory (2-3nd Digit) Wrist ? 4.2 20.1 Wrist 2-3nd Digit 4.2 14.0 33 Wrist ? 4.0 18.7 Wrist 2-3nd Digit 4.2 14.0 33 Left Radial Anti Sensory (Base 1st Digit) Wrist ? 1.9 12.3 Wrist Base 1st Digit 1.9 0.0 Left Ulnar Anti Sensory (5th Digit) Wrist ? 2.8 33.3 Wrist 5th Digit 2.8 14.0 50 ?Stim Site NR Onset (ms) O-P Amp (mV) Site1 Site2 Delta-0 (ms) Dist (cm) Mika (m/s) Left Median Motor (Abd Poll Brev) Wrist ? 4.5 7.0 Elbow Wrist 5.3 33.0 62 Elbow ? 9.8 6.8 Left Ulnar Motor (Abd Dig Minimi) Wrist ? 3.0 6.8 A Elbow Wrist 6.3 33.0 52 A Elbow ? 9.3 8.4 B Elbow Wrist 4.7 26.0 55 B Elbow ? 7.7 6.5 F Wave Studies ?NR F-Lat (ms) L-R F-Lat (ms) Left Median (Mrkrs) (Abd Poll Brev) ? 32.93 Left Ulnar (Mrkrs) (Abd Dig Min) ? 33.22 Electromyography ?Side Muscle Nerve Root Ins Act Fibs Amp Dur Recrt Comment Left 1stDorInt Ulnar C8-T1 Nml Nml Nml Nml Nml Left Ext Indicis Radial (Post Int) C7-8 Nml Nml Nml Nml Nml Left Ext Digitorum Radial (Post Int) C7-8 Nml Nml Nml Nml Nml Left BrachioRad Radial C5-6 Nml Nml Nml Nml Nml Left PronatorTeres Median C6-7 Nml Nml Nml Nml Nml Left Abd Poll Brev Median C8-T1 Nml Nml Nml Nml Nml Left ABD Dig Min Ulnar C8-T1 Nml Nml Nml Nml Nml Left FlexPolLong Median (Ant Int) C7-8 Nml Nml Nml Nml Nml Left Abd Poll Long Radial (Post Int) C7-8 Nml Nml Nml Nml Nml
== END 2025-06-10 12:15 | disposition home or self-care (01) ==
LOC: ANHNEURO 12:15
PROVIDERS: PCP Nurse Practitioner Family; Visit Provider Plastic Surgery
DX: G56.02 Carpal tunnel syndrome, left upper limb (principal); G56.22 Lesion of ulnar nerve, left upper limb
CPT/HCPCS: 95886; 95909